=== PATIENT | male | born 1975 | race African-American/Black ===

== ENCOUNTER → 2017-08-04 | Outpatient (CLI) | payer OTHER ==
--- NOTE | 2017-08-04 14:09 | DIAGNOSTIC IMAGING REPORT ---
Left elbow 3 views CLINICAL HISTORY: LEFT ELBOW FX COMPARISON STUDY: None. FINDINGS: Displacement of the anterior and posterior humeral fat-pad consistent with a joint effusion. There is a slightly distracted fracture at the coronoid process of the ulna. The radius appears intact. No dislocation. IMPRESSION: Slightly distracted fracture at the coronoid process of the ulna. Electronically signed by: Milan Norman M.D. 08/04/2017 2:07 PM Dictated Date/Time: 08/04/2017 2:05 PM
== END | disposition home or self-care (01) ==
LOC: C.RDSM 13:27
PROVIDERS: ATTEND Physician Assistant
DX: S52.042A Displaced fracture of coronoid process of left ulna, initial encounter for closed fracture (principal); X58.XXXA Exposure to other specified factors, initial encounter

== ENCOUNTER → 2017-09-20 | Outpatient (CLI) | payer OTHER ==
--- NOTE | 2017-09-20 15:15 | DIAGNOSTIC IMAGING REPORT ---
L ELBOW MIN 3 VIEWS CLINICAL HISTORY: LEFT ELBOW FX COMPARISON: 08/04/2017 DISCUSSION: The fat pads are not displaced. There is no change in the orientation of the coronoid process fracture of the proximal ulna. There is a stable corticated ossicle located posterior to the olecranon. IMPRESSION: No change in the appearance of the essentially nondisplaced fracture of the coronoid process of the ulna Electronically signed by: Torrey Cifuentes M.D. 09/20/2017 3:13 PM Dictated Date/Time: 09/20/2017 3:12 PM
== END ==
LOC: C.RDSM 12:42
PROVIDERS: ATTEND Physician Assistant
DX: S52.045A Nondisplaced fracture of coronoid process of left ulna, initial encounter for closed fracture (principal); X58.XXXA Exposure to other specified factors, initial encounter